=== PATIENT | male | born 1960 | race African-American/Black ===

== ENCOUNTER 2018-04-18 20:04 | Emergency (ER) | payer MEDICARE ==
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
== END 2018-04-18 22:13 | disposition home or self-care (01) ==
LOC: ERS 20:04
DX: M54.2 Cervicalgia (principal); I10 Essential (primary) hypertension; G51.0 Bell's palsy; V43.52XA Car driver injured in collision with other type car in traffic accident, initial encounter
CPT/HCPCS: 72125